=== PATIENT | female | born 1925 | race Caucasian/White ===

== ENCOUNTER 2016-10-13 14:15 | Emergency (ER) | payer OTHER ==
[~2016-10-13] VITALS: Ht 157.5 cm; Wt 59.8 kg
[~2016-10-13 14:15] MED LIST: AMLODIPINE BES2.5 MG PO; ASPIR 8181 M1 PO; B100 BALANCED100 MG PO; CARDIZEM30 MG PO; CILOSTAZOL100 MG PO; CITRUCEL500 MG PO; Cardizem PO; Cozaar PO; FLONASE16 G1 BOTH NARES; Flonase BOTH NARES; GLIMEPIRIDE1 MG PO; HALFPRIN162 MG PO; ICAPS MULTIV1 TABLET PO; ICaps Multivitamin F PO; ISOSORBIDE MONO30 MG PO; Imdur PO; LOSARTAN POTAS100 MG PO; Lopressor PO; METOPROLOL TAR100 MG PO; MIRALAX17 GM PO; MIRALAX255 GM PO; Metamucil Capsule PO; OMEPRAZOLE20 MG PO; PRAVASTATIN SOD40 MG PO; PREDNISONE2.5 MG PO; PREDNISONE5 MG PO; PRESERVISION A1 EAC2 PO; Pletal PO; Pravachol PO; PriLOSEC PO; SPIRONOLACTONE50 MG PO; TRAMADOL HCL50 MG PO; TRIMETHOPRIM100 MG PO; TUMS500 MG PO; TYLENOL REGULA325 MG PO; Ultram PO; VITAMIN B-12250 MCG PO; VITAMIN D-32000 UNI2 PO; Vitamin D PO
[2016-10-13 16:01] VITALS: BP 176/70
== END 2016-10-13 16:02 | disposition home or self-care (01) ==
LOC: EME 14:15
DX: R60.9 Edema, unspecified (principal); I25.2 Old myocardial infarction; I10 Essential (primary) hypertension; Z98.61 Coronary angioplasty status; E11.9 Type 2 diabetes mellitus without complications; E78.5 Hyperlipidemia, unspecified; Z79.82 Long term (current) use of aspirin
CPT/HCPCS: 93971; 99281; 99284